=== PATIENT | male | born 1990 | race Caucasian/White ===

== ENCOUNTER 2023-11-09 12:00 | Emergency (ER) | payer OTHER, MEDICAID, SELFPAY ==
[2023-11-09 12:07] VITALS: BP 177/104; PULSE 89; RESP 18; O2SAT 97; BMI 38.7
--- NOTE | 2023-11-09 12:28 | ED.GENADULT ---
HPI - General Adult General Chief complaint: Extremity Injury, Upper Stated complaint: T-7 Fell/ PCP ref discoloration/pain Time Seen by Provider: 11/09/23 12:09 Source: patient Mode of arrival: Ambulatory History of Present Illness HPI narrative: Patient is a 33-year-old male. Approximately 7 days ago he fell and injured his left shoulder and left arm. He states he has had 2 different x-rays of the shoulder. There have been no broken bones. He has seen Orthopedics. He does wear sling as needed at work. He was told that if he had any discoloration or change in color to his hand that he needed to come to the emergency department. He states that last evening he developed bruising of the shoulder and upper arm and thought that maybe his left hand was more swollen and discolored. Related Data Allergies Allergy/AdvReac Type Severity Reaction Status Date / Time No Known Drug Allergies Allergy Verified 11/09/23 12:07 Review of Systems Musculoskeletal Musculoskeletal: Reports system reviewed and no additional complaints, except as documented Integumentary/Breasts Skin/Breast: Reports system reviewed and no additional complaints, except as documented Neurologic Neurologic: Reports system reviewed and no additional complaints, except as documented Patient History Social History Smoking Status: Current every day smoker Smoking Status: Current every day smoker tobacco type: vaping alcohol intake frequency: a few times a month Substance Use Type: marijuana Exam Initial Vital Signs Initial Vital Signs: Vital Signs Pulse Rate 89 11/09/23 12:07 Respiratory Rate 18 11/09/23 12:07 Blood Pressure 177/104 H 11/09/23 12:07 Pulse Oximetry 97 11/09/23 12:07 Oxygen Delivery Method Room Air 11/09/23 12:07 Cardio Pulses: radial pulses present on the left Skin Other: Bruising to the anterior and lateral aspect of the left upper arm. Neuro Sensory Exam: no sensory deficits noted Extrem Other: Brisk cap refill. Discomfort with palpation of the biceps tendon. His left elbow and left wrist unremarkable. Course Vital Signs Vital signs: Vital Signs - 8 hr 11/09/23 12:07 Pulse Rate 89 Respiratory Rate 18 Blood Pressure 177/104 H Pulse Oximetry 97 Oxygen Delivery Method Room Air Medical Decision Making [facility] Narrative Medical decision making narrative: Patient is neurovascularly intact. Good brisk cap refill. Radial pulse on the left is unremarkable. Low suspicion for compartment syndrome. He does have bruising of the left shoulder in the anterior portion of the shoulder. I suspect that this is a muscular/soft tissue injury. He is had multiple x-rays with no bony injury. No further workup required here in the emergency department. Will have the patient continue to follow-up with orthopedic surgery. Discharge Plan Departure Patient Disposition: Home Clinical Impression: Contusion of arm, left Activity Restrictions/Additional Instructions: Recommend that you continue to follow all of the instructions given to you by Orthopedic surgery. Keep all of your scheduled follow-up visits. Return to the emergency department for new symptoms. Referrals: Miscellaneous,Doctor, [Primary Care Provider] - Stand Alone Forms: Patient Portal/API
[2023-11-09 12:37] VITALS: PULSE 81
--- NOTE | 2023-11-09 12:41 | PC.NURSE ---
patient stated that he can feel in his left hand but it feels more numb than usual
[2023-11-09 12:47] VITALS: BP 151/79; PULSE 81; RESP 12; O2SAT 95
== END 2023-11-09 12:50 | disposition home or self-care (01) ==
PROVIDERS: Emergency Provider Emergency Medicine
DX: S40.022A Contusion of left upper arm, initial encounter (principal); W19.XXXA Unspecified fall, initial encounter
CPT/HCPCS: 99281